=== PATIENT | male | born 1955 | race Caucasian/White ===

== ENCOUNTER 2023-03-22 22:42 | Inpatient (IN) | payer MEDICARE ==
[~2023-03-22] VITALS: Ht 172.7 cm; Wt 90.0 kg
[2023-03-23] VITALS (8 sets, daily range): BP systolic 133–154; BP diastolic 76–86
--- NOTE | 2023-03-23 00:13 | NUR ---
PT AMB TO RM 12; NOTIFIED
--- NOTE | 2023-03-23 00:30 | NUR ---
IV PLACED LABS DRAWN AND URINE COLLECTED
--- NOTE | 2023-03-23 00:56 | NUR ---
PT PLACED IN GOWN; STATES MEDICATIONS HELPED SOME
--- NOTE | 2023-03-23 01:00 | NUR ---
PT STILL HAS SOME ABD PAIN; VSS
[2023-03-23 01:09] LABS: URINE BILIRUBIN - DIPSTICK Negative (NEGATIVE); URINE BLOOD DIPSTICK Moderate (NEGATIVE); URINE GLUCOSE - DIPSTICK Negative (NEGATIVE); URINE KETONE 15 mg/dL (NEGATIVE); URINE NITRITE - DIPSTICK Positive (Negative); URINE PH 5.5 (4.5-8.0); URINE PROTEIN - DIPSTICK 30 mg/dL (NEG-TRACE); URINE SPECIFIC GRAVITY 1.025; URINE UROBILINOGEN - DIPSTICK 0.2 E.U./dL (0.2)
[2023-03-23 01:28] LABS: URINE COLOR Yellow; URINE LEUK ESTERASE Small (NEGATIVE)
[2023-03-23 01:30] LABS: BASO% 0.1 % (0-3); EOS% 0.1 % (0-8); HEMATOCRIT 50.5 % (39.0-50.0); HEMOGLOBIN 16.6 g/dl (14.0-18.0); IMMATURE GRANULOCYTES 0.2 % (0.0-5.0); LYMPH% 6.6 % (15-41); MEAN CELL VOLUME 98.2 fL CALC (80.0-100.0); MEAN CORPUSCULAR HGB 32.3 pG CALC (26.0-32.0); MEAN CORPUSCULAR HGB CONC 32.9 g/dL CAL (32.0-36.0); MONO% 4.1 % (2-13); NEUT# 15.11 thou/uL (1.82-7.42); NEUT% 88.9 % (42-76); RED BLOOD COUNT 5.14 mill/uL (4.70-6.10); RED CELL DISTRI WIDTH 12.6 % (11.5-15.5)
[2023-03-23 01:34] LABS: URINE BACTERIA MODERATE hpf; URINE MUCUS FEW hpf (NONE-FEW); URINE SQUAMOUS EPITHELIAL CELL FEW EPI/hpf (0-FEW); URINE WBC 20-50 WBC/hpf (0-5)
[2023-03-23 01:52] LABS: ALBUMIN 4.5 g/dL (3.2-5.0); ALKALINE PHOSPHATASE 61 u/l (38-126); AMYLASE 56 u/l (30-110); ANION GAP 13 (6-22 (CALC)); BILIRUBIN, TOTAL 1.1 mg/dL (0.2-1.3); BUN 20 mg/dL (8-23); BUN/CREATININE RATIO 18 (12-20 (CALC)); CARBON DIOXIDE 29 mmol/l (22-30); CHLORIDE 101 mmol/l (95-108); CREATININE 1.1 mg/dL (0.7-1.3); GFR FOR AFR.AMER. > 60 ML/MIN (>=60 (CALC)); GFR OTHER RACES > 60 ML/MIN (>=60 (CALC)); LIPASE 53 u/l (23-300); POTASSIUM 4.6 mmol/l (3.5-5.1); SGOT/AST 31 u/l (19-48); SODIUM 139 mmol/l (137-146)
--- NOTE | 2023-03-23 01:52 | NUR ---
ORDERING ROCEPHIN FOR PT; UTI PER LABS
--- NOTE | 2023-03-23 03:00 | NUR ---
PT RESTING WITH SOME CO OF GERD; MD ORDERING MEDS; VSS; NAD
--- NOTE | 2023-03-23 04:10 | NUR ---
PT ALERT ORIENTED; NO CO PAIN A THIS TIME; MD ADMITTING PT FOR SMALL BOWEL OBSTRUCTION; PT AGREES TO NG PLACEMENT PER MD ORDERS
--- NOTE | 2023-03-23 05:35 | NUR ---
NG PLACED IN L NARE WITH NO COMPLICATIONS PER MD ORDER AND PLACED ON LOW INTERMITTENT SUCTION; AUSCULATED FOR PLACEMENT AND CXR ORDERED STAT; PT TOLERATED WELL; VSS AND NAD
--- NOTE | 2023-03-23 05:45 | NUR ---
IV FLUIDS STARTED; FLOOR PT BEING HELD IN ED UNTIL SHIFT CHANGE; VSS; NAD; WAITING FOR CXR
[2023-03-23] MEDS ORDERED: LEVOTHYROXIN125 MCG PO (06:45)
[2023-03-23] MEDS ORDERED: TENORMIN25 MG PO (06:45)
[2023-03-23] MEDS ORDERED: AMLODIPINE BESYL5 MG PO (06:46)
--- NOTE | 2023-03-23 06:47 | NUR ---
EKG COMPLETED; VSS; NAD WAITING FOR AVAILABLE BED UPSTAIRS
--- NOTE | 2023-03-23 07:23 | NUR ---
RECEIVED REPORT FROM NIGHTSHIFT NURSE. PT LAYING SEMI FOWLERS ON STR, NG TUBE NOTED IN LEFT NARE. PT A/OX3, RM AIR, DENIES ANY PAIN OR NAUSEA AT THIS TIME. AT BEDSIDE. EDUCATED ON PLAN OF CARE TODAY.
--- NOTE | 2023-03-23 15:15 | NUR ---
PT BROUGHT UP TO RM 286, REPORT GIVEN TO MARIANO SNIDER.
--- NOTE | 2023-03-23 15:15 | NUR ---
PT BROUGHT UP TO RM 268 VIA WHEELCHAIR. REPORT GIVEN TO MARIANO SNIDER.
[2023-03-23 15:36] LABS: BASO% 0.2 % (0-3); EOS% 0.9 % (0-8); HEMOGLOBIN 14.9 g/dl (14.0-18.0); IMMATURE GRANULOCYTES 0.1 % (0.0-5.0); LYMPH% 13.8 % (15-41); MEAN CELL VOLUME 99.6 fL CALC (80.0-100.0); MEAN CORPUSCULAR HGB CONC 33.1 g/dL CAL (32.0-36.0); MONO% 7.7 % (2-13); NEUT# 8.95 thou/uL (1.82-7.42); NEUT% 77.3 % (42-76); RED BLOOD COUNT 4.52 mill/uL (4.70-6.10); RED CELL DISTRI WIDTH 12.9 % (11.5-15.5)
[2023-03-23 15:48] LABS: ALKALINE PHOSPHATASE 43 u/l (38-126); ANION GAP 9 (6-22 (CALC)); BILIRUBIN, TOTAL 1.1 mg/dL (0.2-1.3); BUN 15 mg/dL (8-23); BUN/CREATININE RATIO 18 (12-20 (CALC)); CARBON DIOXIDE 26 mmol/l (22-30); CHLORIDE 108 mmol/l (95-108); CREATININE 0.8 mg/dL (0.7-1.3); GFR FOR AFR.AMER. > 60 ML/MIN (>=60 (CALC)); GFR OTHER RACES > 60 ML/MIN (>=60 (CALC)); MAGNESIUM 2.1 mg/dL (1.6-2.3); POTASSIUM 4.3 mmol/l (3.5-5.1); SGOT/AST 24 u/l (19-48); SODIUM 139 mmol/l (137-146)
[2023-03-23 16:00] LABS: ALBUMIN 3.4 g/dL (3.2-5.0)
--- NOTE | 2023-03-23 16:00 | NUR ---
PT ARRIVED TO MS AT 1511. PT A/OX3 AMBULATORY. HEART RHYHM NORM. REPSRIAITONS ON ROOM AIR 16 NG TUBE INSERTED IN ER. SUCTIONING. IV SITE NOTED . PT USES URINAL FOR VOID. PT DENIES ADDITIONAL NEEDS AT THE TIME ALL SAFETY PRECAUTIONS IN PLACE WITH CALL LIGHT IN REACH.
--- NOTE | 2023-03-23 18:16 | NUR ---
MD INFORMED OF PT REQUEST OF NICOTINE PATCH AND LOZENGES FOR SORE THROAT. STATED WILL ORDER.
--- NOTE | 2023-03-23 22:33 | NUR ---
received shift report at start of shift. pt sitting in recliner. alert and oriented. ng tube in place. connected to low wall suction.draing small amt pink drainage. pt denies pain. iv fluids infusing as ordered. safety precautions maintained. spouse with pt. call light in reach
[2023-03-24 00:29] VITALS: BP 178/83
[2023-03-24 00:40] VITALS: BP 178/82
--- NOTE | 2023-03-24 03:52 | NUR ---
PT WITH NGT TO SUCTION. DRAINING LIGHT BROWN LIQUID. PT STATES " I PASSED GAS A FEW TIMES" DENIES MABDOMINAL DISCOMFORT. SLEPT WELL. HAS NICOTINE PATH ON LEFT SHOULDER. SAFETY PRECATIONS MAINTAINED.
[2023-03-24 05:00] VITALS: BP 164/85
[2023-03-24 05:27] LABS: BASO% 0.2 % (0-3); HEMATOCRIT 41.7 % (39.0-50.0); HEMOGLOBIN 13.9 g/dl (14.0-18.0); IMMATURE GRANULOCYTES 0.3 % (0.0-5.0); LYMPH% 24.2 % (15-41); MEAN CELL VOLUME 100.2 fL CALC (80.0-100.0); MEAN CORPUSCULAR HGB 33.4 pG CALC (26.0-32.0); MEAN CORPUSCULAR HGB CONC 33.3 g/dL CAL (32.0-36.0); MONO% 8.4 % (2-13); NEUT# 6.52 thou/uL (1.82-7.42); NEUT% 65.9 % (42-76); RED BLOOD COUNT 4.16 mill/uL (4.70-6.10); RED CELL DISTRI WIDTH 12.9 % (11.5-15.5)
[2023-03-24 05:44] LABS: ALBUMIN 3.3 g/dL (3.2-5.0); ALKALINE PHOSPHATASE 44 u/l (38-126); ANION GAP 6 (6-22 (CALC)); BUN 15 mg/dL (8-23); BUN/CREATININE RATIO 17 (12-20 (CALC)); CARBON DIOXIDE 30 mmol/l (22-30); CHLORIDE 108 mmol/l (95-108); CREATININE 0.8 mg/dL (0.7-1.3); GFR FOR AFR.AMER. > 60 ML/MIN (>=60 (CALC)); GFR OTHER RACES > 60 ML/MIN (>=60 (CALC)); MAGNESIUM 2.1 mg/dL (1.6-2.3); POTASSIUM 3.7 mmol/l (3.5-5.1); SGOT/AST 26 u/l (19-48); SODIUM 141 mmol/l (137-146)
[2023-03-24 07:00] VITALS: BP 180/82
--- NOTE | 2023-03-24 07:12 | NUR ---
PT RESTING IN LOW FOWLERS POSITION. A/OX3 HEART RHYHTM NORM NO TELE. RESPIRAITONS ON RA. NG TUBE NOTED. PT IV SITE NOTED. PT S/O AT BEDSIDE. PT NPO. PT DENIES ADDITIONAL NEEDS AT THE TIME ALL SAFETY PRECAUTIONS IN PLACE WITH CALL LIGHT INREACH.
--- NOTE | 2023-03-24 09:25 | NUR ---
PT TRANSPORTED TO XRAY EARLY THIS MORNING AT 0814 PT HAS NOT ARRIVED BACK TO FLOOR.
--- NOTE | 2023-03-24 11:20 | NUR ---
PT NG TUBE REMOVED PER ORDER. DR WILKS IN PT ROOM.
[2023-03-24 11:54] VITALS: BP 167/78
--- NOTE | 2023-03-24 12:10 | NUR ---
PT RESTING IN HIGH FOWLERS POSITION. PT EDUCATED ON FULL LIQ DIET.
--- NOTE | 2023-03-24 12:14 | NUR ---
PT BP NOW MORE STABLE. ROTOFORMER BACKTENDER NOTIFIED OF PT BLOOD PRESSURE TRENDING HIGH THIS MORNING. PT NOW FEELS BETTER WITH OUT NG TUBE.
[2023-03-24] MEDS ORDERED: OMNICEF300 MG PO (12:32)
--- NOTE | 2023-03-24 13:36 | NUR ---
PT TOLERATED DIET STATES NO PAIN NAUSEA OR VOMITING.
--- NOTE | 2023-03-24 13:54 | NUR ---
Discharge instructions given. Patient verbalizes understanding of same. Discharged in stable condition via Wheelchair to Home with volunteer. All belongings sent with pt. IV REMOVED.
== END 2023-03-24 13:54 | disposition home or self-care (01) | DRG 389 ==
LOC: ED 22:42 → ED-I 03-23 04:20 → ED 03-23 04:41 → ED-I 03-23 04:42 → MS2 03-23 14:07
PROVIDERS: Emergency Medicine; ADMIT Internal Medicine; ATTEND Student in an Organized Health Care Education/Training Program
DX: K56.609 Unspecified intestinal obstruction, unspecified as to partial versus complete obstruction (principal); N39.0 Urinary tract infection, site not specified; B96.5 Pseudomonas (aeruginosa) (mallei) (pseudomallei) as the cause of diseases classified elsewhere; E86.0 Dehydration; I10 Essential (primary) hypertension; E03.9 Hypothyroidism, unspecified; Z20.822 Contact with and (suspected) exposure to COVID-19
CPT/HCPCS: Q9967; S0164

== ENCOUNTER 2024-09-10 09:14 | Day surgery (SDC) | payer MEDICARE ==
[~2024-09-10] VITALS: Ht 177.8 cm; Wt 106.6 kg
[~2024-09-10 09:14] MED LIST: AMLODIPINE BESYL5 MG PO; CIALIS5 MG PO; LEVOTHYROXIN125 MCG PO; MULTI VIT PO; OMNICEF300 MG PO; TENORMIN25 MG PO
[2024-09-10] MEDS ORDERED: FAMOTIDINE 10MG/ML 2ML SDV IV ONE (09:26)
[2024-09-10] MEDS ORDERED: SODIUM CHLORIDE 0.9% 1,000 ML IV ONE (09:26)
[2024-09-10 11:51] VITALS: BP 146/79
[2024-09-10] MEDS ORDERED: LIDOCAINE HCL 2% 2ML SDV IV ONE (12:41)
[2024-09-10] MEDS ORDERED: GLYCOPYRROLATE 0.2 MG/ML IV ONE (12:41)
[2024-09-10] MEDS ORDERED: PROPOFOL 500 MG/50 ML VIAL IV ONE (12:41)
== END 2024-09-10 12:02 | disposition home or self-care (01) ==
LOC: ENDO 09:14
PROVIDERS: ATTEND Surgery
PROC: 0DBP8ZX Excision of Rectum, Via Natural or Artificial Opening Endoscopic, Diagnostic (ICD-10-PCS; principal; 2024-09-10)
PROC: 0DBN8ZX Excision of Sigmoid Colon, Via Natural or Artificial Opening Endoscopic, Diagnostic (ICD-10-PCS; 2024-09-10)
DX: Z12.11 Encounter for screening for malignant neoplasm of colon (principal); D12.5 Benign neoplasm of sigmoid colon; D12.8 Benign neoplasm of rectum; K57.30 Diverticulosis of large intestine without perforation or abscess without bleeding; I10 Essential (primary) hypertension; E03.9 Hypothyroidism, unspecified; K64.8 Other hemorrhoids
CPT/HCPCS: J1596